=== PATIENT | female | born 1985 | race African-American/Black ===

== ENCOUNTER 2016-05-30 13:32 | Emergency (ER) | payer OTHER ==
[~2016-05-30] VITALS: Ht 177.8 cm; Wt 105.7 kg
[~2016-05-30 13:32] MED LIST: ADVIL,NUPRIN,M200 MG PO; BACTRIM,SEPT1 TABLET PO; DEPAKOTE500 MG PO; KEPPRA500 MG PO; NAPROXEN500 MG PO; STRATTERA25 MG PO; VITAMIN B-6100 MG PO; ZOFRAN4 MG PO
[2016-05-30 17:03] LABS: HEMATOCRIT 40.2 % (36.0-46.0); MCH 33.2 PG (29.0-34.0); MCHC 33.8 G/DL (30.0-36.0); MEAN PLAT.VOLUME 11.1 uM^3 (9.5-12.4); PLATELET COUNT 236 K/uL (156-360); RBC DIS.WIDTH-CV 12.6 % (11.8-14.6); RBC DIS.WIDTH-SD 43.9 % (39-53); WHITE BLOOD COUNT 14.1 K/uL (4.1-10.2)
[2016-05-30 17:14] LABS: CHLORIDE 108 mEq/L (99-109); POTASSIUM 4.3 mEq/L (3.7-5.4); SODIUM 139 mEq/L (136-147)
[2016-05-30 17:17] LABS: GLUCOSE 89 mg/dL (70-99)
[2016-05-30 17:18] LABS: ANION GAP 9 MEQ/L (2-14); TOTAL BILIRUBIN 0.4 mg/dL (0.0-1.0)
[2016-05-30 17:20] LABS: ALKALINE PHOSPHATASE 66 IU/L (3-129); GFR ESTIMATE (CALCULATED) > 59 mL/min/
[2016-05-30 17:21] LABS: UREA NITROGEN (BUN) 13 mg/dL (9-23)
[2016-05-30 18:36] VITALS: BP 110/57
== END 2016-05-30 18:49 | disposition home or self-care (01) ==
LOC: EME 13:32 → RME 13:32
PROVIDERS: Nurse Practitioner Family
DX: G43.909 Migraine, unspecified, not intractable, without status migrainosus (principal); H53.149 Visual discomfort, unspecified; F17.200 Nicotine dependence, unspecified, uncomplicated
CPT/HCPCS: 80053; 85027; 99281; 99284; J0780; J1100; J1200; J1885; J7030

== ENCOUNTER 2016-06-10 13:16 | Inpatient (IN) | payer OTHER ==
[~2016-06-10] VITALS: Ht 177.8 cm; Wt 104.0 kg
[2016-06-10 15:17] LABS: HEMATOCRIT 41.1 % (36.0-46.0); MCH 33.2 PG (29.0-34.0); MCHC 33.3 G/DL (30.0-36.0); MCV 99.5 FL (83-99); MEAN PLAT.VOLUME 11.2 uM^3 (9.5-12.4); PLATELET COUNT 216 K/uL (156-360); RBC DIS.WIDTH-CV 12.1 % (11.8-14.6); RBC DIS.WIDTH-SD 43.8 % (39-53); RED BLOOD COUNT 4.13 M/uL (3.80-5.20); WHITE BLOOD COUNT 13.7 K/uL (4.1-10.2)
[2016-06-10 15:35] LABS: ADD MIUA? YES; BILIRUBIN NEGATIVE; BLOOD NEGATIVE; COLOR YELLOW ((YELLOW)); GLUCOSE (STRIP) NEGATIVE; KETONES NEGATIVE; LEUKOCYTES NEGATIVE; NITRITE NEGATIVE; PROTEIN (STRIP) NEGATIVE; SPECIFIC GRAVITY 1.024 (1.000-1.030); UROBILINOGEN 0.2 MG/DL (0.2-1.0)
[2016-06-10 15:50] LABS: THC CANNABINOIDS PRESUMPTIVE POSITIVE (50 ng/mL)
[2016-06-10 15:51] LABS: ADD MEDTOX COMMENT Y; AMPHETAMINE NEGATIVE (500 ng/mL); BARBITURATES NEGATIVE (200 ng/mL); BENZODIAZEPINES NEGATIVE (150 ng/mL); COCAINE NEGATIVE (150 ng/mL); INTERNAL CONTROLS VALID? YES; METHADONE NEGATIVE (200 ng/mL); METHAMPHETAMINE NEGATIVE (500 ng/mL); OPIATES (MORPHINE) NEGATIVE (100 ng/mL); OXYCODONE NEGATIVE (100 ng/mL); PHENCYCLIDINE NEGATIVE (25 ng/mL); PROPOXYPHENE NEGATIVE (300 ng/mL); TRICYCLIC ANTIDEPRESSANTS NEGATIVE (300 ng/mL)
[2016-06-10 15:52] LABS: ANION GAP 9 MEQ/L (2-14); CHLORIDE 102 MEQ/L (99-109); SAMPLE HEMOLYSIS CHECK 0; SAMPLE ICTERIC CHECK 0; SAMPLE LIPEMIA CHECK 0; SODIUM 138 MEQ/L (136-147); TOTAL BILIRUBIN 0.4 MG/DL (0.0-1.0)
[2016-06-10] MEDS ORDERED: BENADRYL ALLERG25 MG PO (15:52)
[2016-06-10] MEDS ORDERED: MELATIN3 MG PO (15:53)
[2016-06-10 16:10] LABS: BACTERIA 3+; CASTS NONE SEEN /LPF; CRYSTALS NONE SEEN; EPITHELIAL CELLS 1+; MUCUS 2+; RED BLOOD CELLS 0-5 /HPF (0-5); WHITE BLOOD CELLS 0-5 /HPF (0-5)
[2016-06-10 16:14] LABS: ALKALINE PHOSPHATASE 65 IU/L (3-129); GFR ESTIMATE (CALCULATED) > 59 mL/min/; GLUCOSE 96 mg/dL (70-99); SERUM ETHYL ALCOHOL < 10 mg/dL; UREA NITROGEN (BUN) 12 mg/dL (9-23)
[2016-06-10 16:54] VITALS: BP 112/61
[2016-06-11 07:42] VITALS: BP 110/55
[2016-06-11 15:30] VITALS: BP 128/56
== END 2016-06-11 17:48 | disposition home or self-care (01) | DRG 885 ==
LOC: EME 13:16 → EDOF 15:26 → 1WEST 16:43
PROVIDERS: Emergency Medicine
DX: F33.1 Major depressive disorder, recurrent, moderate (principal); G40.409 Other generalized epilepsy and epileptic syndromes, not intractable, without status epilepticus; R45.851 Suicidal ideations; F12.10 Cannabis abuse, uncomplicated; M79.7 Fibromyalgia; F51.4 Sleep terrors [night terrors]
CPT/HCPCS: 80053; 81003; 84999; 85027; 90839; 99281; 99284; G0480; Q0177

== ENCOUNTER 2016-08-16 15:00 | Emergency (ER) | payer OTHER ==
[~2016-08-16] VITALS: Ht 180.3 cm; Wt 123.0 kg
[~2016-08-16 15:00] MED LIST changes: +BENADRYL ALLERG25 MG PO; +MELATIN3 MG PO
[2016-08-16 16:17] LABS: MCH 33.2 PG (29.0-34.0); MCHC 33.2 G/DL (30.0-36.0); MEAN PLAT.VOLUME 10.6 uM^3 (9.5-12.4); PLATELET COUNT 226 K/uL (156-360); RBC DIS.WIDTH-CV 12.6 % (11.8-14.6); RBC DIS.WIDTH-SD 46.7 % (39-53); WHITE BLOOD COUNT 12.7 K/uL (4.1-10.2)
[2016-08-16 16:32] LABS: CHLORIDE 105 mEq/L (99-109); POTASSIUM 4.8 mEq/L (3.7-5.4); SODIUM 139 mEq/L (136-147)
[2016-08-16 16:34] LABS: GLUCOSE 96 mg/dL (70-99)
[2016-08-16 16:35] LABS: ANION GAP 10 MEQ/L (2-14)
[2016-08-16 16:38] LABS: GFR ESTIMATE (CALCULATED) > 59 mL/min/
[2016-08-16 16:39] LABS: UREA NITROGEN (BUN) 13 mg/dL (9-23)
[2016-08-16 16:40] LABS: CREATINE KINASE 376 IU/L (1-294)
[2016-08-16 16:46] LABS: QUANTITATIVE HCG < 4.0 MIU/ML
[2016-08-16 17:08] LABS: SAMPLE HEMOLYSIS CHECK 0; SAMPLE ICTERIC CHECK 0; SAMPLE LIPEMIA CHECK 0
[2016-08-16 18:36] VITALS: BP 115/63
== END 2016-08-16 18:37 | disposition home or self-care (01) ==
LOC: EME 15:00
PROVIDERS: Emergency Medicine
DX: R56.9 Unspecified convulsions (principal); D72.829 Elevated white blood cell count, unspecified; M62.82 Rhabdomyolysis; I25.2 Old myocardial infarction; Z86.73 Personal history of transient ischemic attack (TIA), and cerebral infarction without residual deficits; F17.200 Nicotine dependence, unspecified, uncomplicated
CPT/HCPCS: 80048; 80164; 82550; 84702; 85027; 93005; 99281; 99283

== ENCOUNTER 2016-12-07 21:51 | Emergency (ER) | payer OTHER ==
[~2016-12-07] VITALS: Ht 180.3 cm; Wt 134.2 kg
[2016-12-07 22:42] LABS: HEMATOCRIT 45.3 % (36.0-46.0); MCH 33.4 PG (29.0-34.0); MCHC 33.8 G/DL (30.0-36.0); MCV 98.9 FL (83-99); MEAN PLAT.VOLUME 10.8 uM^3 (9.5-12.4); PLATELET COUNT 167 K/uL (156-360); RBC DIS.WIDTH-CV 12.9 % (11.8-14.6); RBC DIS.WIDTH-SD 46.9 % (39-53); RED BLOOD COUNT 4.58 M/uL (3.80-5.20); WHITE BLOOD COUNT 9.1 K/uL (4.1-10.2)
[2016-12-07 22:51] LABS: CHLORIDE 111 mEq/L (99-109); POTASSIUM 4.3 mEq/L (3.7-5.4); SODIUM 140 mEq/L (136-147)
[2016-12-07 22:52] LABS: GLUCOSE 123 mg/dL (70-99)
[2016-12-07 22:54] LABS: ANION GAP 10 MEQ/L (2-14)
[2016-12-07 22:56] LABS: GFR ESTIMATE (CALCULATED) > 59 mL/min/
[2016-12-07 22:57] LABS: UREA NITROGEN (BUN) 12 mg/dL (9-23)
[2016-12-07 23:06] LABS: QUANTITATIVE HCG < 4.0 MIU/ML
[2016-12-08 00:34] VITALS: BP 138/68
== END 2016-12-08 00:35 | disposition home or self-care (01) ==
LOC: EME → EDBD 21:51 → EME 21:51
PROVIDERS: Emergency Medicine
DX: R56.9 Unspecified convulsions (principal); G43.909 Migraine, unspecified, not intractable, without status migrainosus; Z86.73 Personal history of transient ischemic attack (TIA), and cerebral infarction without residual deficits; I25.2 Old myocardial infarction; F17.200 Nicotine dependence, unspecified, uncomplicated; H57.12 Ocular pain, left eye
CPT/HCPCS: 70450; 80048; 80164; 84702; 85027; 93005; 99281; 99285; J2060